=== PATIENT | male | born 1975 | race Caucasian/White ===

== ENCOUNTER 2022-12-28 08:12 | Outpatient (OUT) | payer BC, SELFPAY ==
--- NOTE | 2022-12-28 08:46 | XR_ITS ---
The [address] [address] Patient Name: ANUPAMA KELLOGG MRN: [id number] date: 1975 Sex: M Assigned Patient Location: LAB Current Patient Location: LAB Accession/Order Number: [id number] Exam Date: 12/28/2022 08:43 Report Date: 12/28/2022 09:03 At the request of: PAVEL SCHWAB Procedure: XR abdomen 1V EXAMINATION: XR abdomen 1V HISTORY: Kidney stone follow-up COMPARISON: XR KUB 09/23/2021 FINDINGS: KIDNEY/URETER - RIGHT: No visible renal or ureteral calcifications. KIDNEY/URETER - LEFT: No visible renal or ureteral calcifications. PELVIS: Stable small calcification within lower right pelvis compatible with phleboliths. BOWEL: No abnormal dilation or deviation. BONES: No acute abnormality. OTHER: Multiple large gallstones. XR/XR abdomen 1V IMPRESSION: 1. No appreciable urinary tract calculi. 2. Chronic cholelithiasis. Electronically authenticated by: JUNE BARRAZA Date: 12/28/2022 09:03
[2022-12-28 09:53] LABS: Anion Gap 11.8; BUN Creatinine Ratio 6.6; Carbon Dioxide 28.1 mmol/L (21.0-32.0); Chloride 105 mmol/L (98-107); Estimated GFR (African America >60 (>=60); Estimated GFR (Non-African Ame >60 (>=60); Glucose 118 mg/dL (74-106); Potassium 3.9 mmol/L (3.5-5.1); Sodium 141 mmol/L (136-145)
== END 2022-12-28 08:13 | disposition home or self-care (01) ==
LOC: LAB 08:17
PROVIDERS: Visit Provider Urology
DX: N20.0 Calculus of kidney (principal); K80.20 Calculus of gallbladder without cholecystitis without obstruction
CPT/HCPCS: 36415; 74018; 80048

== ENCOUNTER 2023-12-27 14:20 | Outpatient (OUT) | payer BC, SELFPAY ==
--- NOTE | 2023-12-27 14:27 | XR_ITS ---
[address] [address] Patient Name: ANUPAMA KELLOGG MRN: [id number] date: 1975 Sex: M Assigned Patient Location: [facility] Current Patient Location: Accession/Order Number: [id number] Exam Date: 12/27/2023 14:30 Report Date: 12/29/2023 07:44 At the request of: PAVEL SCHWAB Procedure: XR abdomen 1V EXAMINATION: XR abdomen 1V HISTORY: Kidney Stones N20.0 COMPARISON: 12/28/2022 FINDINGS: KIDNEY/URETER - RIGHT: No visible renal or ureteral calcifications. KIDNEY/URETER - LEFT: No visible renal or ureteral calcifications. PELVIS: No visible ureteral calcifications. Any visible calcifications favor phleboliths. BOWEL: No abnormal dilation or deviation. BONES: No acute abnormality. OTHER: Negative. No abnormal gaseous collections. XR/XR abdomen 1V IMPRESSION: No definite urinary tract calculi Electronically authenticated by: SUSIE ST Date: 12/29/2023 07:44
== END 2023-12-27 14:21 | disposition home or self-care (01) ==
LOC: LAB 14:22 → RAD 14:24
PROVIDERS: Visit Provider Urology
DX: N20.0 Calculus of kidney (principal)
CPT/HCPCS: 74018

== ENCOUNTER 2024-12-28 09:42 | Outpatient (OUT) | payer BC, SELFPAY ==
--- OUTSIDE RECORDS SUMMARY | 2024-12-28 09:54 | XMS_ITS | CCD ---
Author Organization [facility] Care Team Providers Care Miller First Name Role Phone NONE, XXXX Primary Care Physician Unavailab le REQUEST, DR CHRISTINE LISTED Admitting Unavaila ble REQUEST, DR KING LISTED Attending Unavaila ble MISC, DR COTTO Primary Care Unavailable REQUEST, DR KING LISTED Consulting Unavaila ble SCHWAB ., DR ZHAO Admitting Unavailable SCHWAB ., DR ZHAO Attending Unavailable MISC, DR COTTO Primary Care Unavailable SCHWAB ., DR ZHAO Consulting Unavailable ZIEBER, DR JUNE Sosa Consulting Unavailable SCHWAB ., DR ZHAO Admitting Unavailable SCHWAB ., DR ZHAO Attending Unavailable MISC, DR COTTO Primary Care Unavailable SCHWAB ., DR ZHAO Consulting Unavailable SCHWAB, Nitish Sosa Attending Unavailable SCHWAB, Nitish Sosa Admitting Unavailable SCHWAB, Nitish Sosa Attending Unavailable SCHWAB, Nitish Sosa Attending Unavailable SCHWAB, Nitish Sosa Attending Unavailable SCHWAB, Nitish Sosa Admitting Unavailable Medications Current Medications Medication Drug Class(es) Dates Sig (Normalized) Sig (Original) allopurinol 300 mg oral tablet (3 sources) Xanthine Oxidase Inhibitor Start: 12-31-2023 take 1 tablet by mouth once daily allopurinol 300 mg Tab 300 mg = 1 tab(s), Oral, Daily, # 90 tab(s), Refills(s) 3, [facility], 184, cm, 12/31/23 9:10:00 EDT, Height/Length Dosing, 103.2, kg, 12/31/23 9:10:00 EDT, Weight Dosing Start Date: 12/31/23 Status: Ordered Start: 06-28-2020 take 1 tablet by kanchan th once daily allopurinol 300 mg Tab 300 mg = 1 tab(s), Oral, Daily, # 90 tab(s), Refills(s) 3, Pharmacy: [facility], 184, cm, 06/28/20 8:38:00 EST, Height/Length Dosing, 104, kg, 06/28/20 8:38:00 EST, Weight Dosing Start Date: 06/28/20 Status: Ordered potassium citrate 10 meq extended release oral tablet (3 sources) Start: 12-31-2023 take 2 tablets by mouth twice daily Urocit-K 10 mEq Tab-ER 20 mEq, 2 tab(s), Oral, BID, 360 tab(s), Refill(s) 3, [facility], 184, cm, 12/31/23 9:10:00 EDT, Height/Length Dosing, 103.2, kg, 12/31/23 9:10:00 EDT, Weight Dosing Start Date: 12/31/23 Status: Ordered Start: 06-28-2020 take 2 tablets by mo uth twice daily Urocit-K 10 mEq Tab-ER 20 mEq, 2 tab(s), Oral, BID, 360 tab(s), Refill(s) 3, [facility], 184, cm, 06/28/20 8:38:00 EST, Height/Length Dosing, 104, kg, 06/28/20 8:38:00 EST, Weight Dosing Start Date: 06/28/20 Status: Ordered Problems Problem Classification Problem Date Documented Date Episodic/Chronic Biliary tract disease (5 sources) Cholelithiasis without obstruction; Translations: [Calculus of gallbladder without cholecystitis without obstruction] Onset: 09-26-2021 Episodic Calculus of urinary tract (13 sources) Kidney stone; Translations: [Calculus of kidney] Onset: 09-23-2021 Episodic Other nutritional; endocrine; and metabolic disorders (3 sources) Body mass index 30+ - obesity 07-03-2020 Chronic Other screening for suspected conditions (not mental disorders or infectious disease) (1 source) Encounter for screening for malignant neoplasm of prostate; Translations: [Screening for malignant neoplasm done] Onset: 12-31-2023 Episodic Substance-related disorders (3 sources) Nicotine dependence 07-03-2020 Chronic Unclassified (2 sources) Patient encounter status 12-25-2022 Results Test Name Value Interpretation Reference Range Facility CHEMISTRYOrdered By: SYSTEM SYSTEM on 12-31-2023 Prostate specific Ag [Mass/Vol] 0.5 ng/mL Normal 0.1 - 3.5 ng/mL [facility] Comment on above: Interpretive Data: T he concentration of PSA determined by different manufacturers can vary due to differences in assay methods and reagent specificity. Values obtained from different assay methods cannot be used interchangeably. The methodology used for this result was chemiluminescence using [employer] Access Hybritech PSA reagent. PSA Totalon 12-31-2023 Prostate specific Ag [Mass/Vol] 0.5 ng/mL Normal 0.1-3.5 [facility] Comment on above: Result Comment: The concentration of PSA determined by different manufacturers can vary due to differences in assay methods and reagent specificity. Values obtained from different assay methods cannot be used interchangeably. The methodology used for this result was chemiluminescence using [employer] Access Hybritech PSA reagent. Performed By: #### 1 [id number] #### [facility] [address] [place] [address] Urology Office/Clinic Noteon 12-31-2023 Urology Office/Clinic Note Urology Office/Clinic Note Chief Complaint kidney stone HPI Staff 1 yr w/ KUB. Dx: kidney stone, screening PSA. *Allopurinol 300mg qd and Urocit-K 10mEq 2 tabs bid KUB done 12/27/23 at [facility] was neg for stones. Pt states no recent PSA done Dysuria: no Incomplete bladder emptying: no Hematuria: no Frequency: no Urgency: no Nocturia: no Stream: no straining or intermittency Leaking: no Post void dripping: no Wearing pads/ Depends: no Urge incontinence: no Stress incontinence: no Incontinence without Sensory Awareness: no Abdominal pain: no Flank pain: no Sexual complaints: no History of Present Illness Tests reviewed: reviewed UA and KUB. I have reviewed the previous health record information and history for this patient from Dr. Schwab. I have reviewed and verified the staff HPI to be accurate for this encounter. There have been no associated fever, chills, flank pain, or blood in the urine. Denies any urinary infections since last encounter. Review of Systems PHQ Score Initial Depression Screen Score: 0 SCORE ROS - Provider Constitutional: denies weight loss, denies hot flashes. Eyes: denies eye problems. Gastrointestinal: denies nausea, denies vomiting. Cardiovascular: denies chest pain or angina. Integumentary: no dryness Musculoskeletal: denies musculoskeletal symptoms. ENMT: denies otolaryngeal symptoms. Respiratory: no shortness of breath. Heme/Lymph: denies easy bleeding tendency, denies easy bruising tendency. Psychiatric: no confusion, no anxiety. Genitourinary: See HPI. Physical Exam Vitals & Measurements T: 37 ?C(Temporal Artery) HR: 80(Peripheral) RR: 16 BP: 130/87 HT: 72 in HT: 184 cm WT: 103.2 kg WT: 227.04 lb BMI: 30.48 General Appearance: alert, no distress, well nourished, well developed male. Assessment/Plan 48 yo male here for annual follow up with KUB. 1. Kidney stone (N20.0: Calculus of kidney) S/p L ESWL 03/19/16, 01/26/13, and 03/24/12. Stone analysis 06/03/17 - 80% Di CaOx, 5% [place] CaOx, 15% CaP. 24hr urine 06/11/17 - high uric acid and total volume of 2000 KUB 12/28/22 [facility] - negative for renal/ureteral stones. KUB 12/27/23 [facility] - no stones id'd. Taking Allopurinol 300mg qd and Urocit-K 10mEq 2 tabs BID. [1] Refills provided. Pt states he has not had a stone in 7 years since starting meds. Pt sates he has also changed his diet. UA today shows trace-intact blood. -Cont meds wo changes -Follow up in 1 year w/ KUB 2. Screening PSA (prostate specific antigen) (Z12.5: Encounter for screening for malignant neoplasm of prostate) PSA: 11/21/21 - 0.90 ~No recent PSA on file. No family hx of prostate CA. -PSA drawn IO today Follow-up With When Contact Information JOSSELIN LOPEZ, Nitish Sosa, URL [address] [place] [address]- Additional Instructions: 1 year w/ KUB Patient Education Dietary Guidelines to Help Prevent Kidney Stones IAnamaria, personally scribed for Dr. Schwab on 12/31/2023 09:34:40. . Documentation recorded by the olyaAnamaria salmeron, accurately reflects the services(s) I performed and decisions made by me. Authenticated by Dr. Schwab on 12/31/2023 09:37:14. Problem List/Past Medical History Ongoing BMI 30.0-30.9,adult Cholelithiasis Kidney stone Screening PSA (prostate specific antigen) Smoker Historical No qualifying data Procedure/Surgical History ESWL - Extracorporeal shockwave lithotripsy for renal calculus (03/19/2016), ESWL - Extracorporeal shockwave lithotripsy for renal calculus (01/26/2013), ESWL - Extracorporeal shockwave lithotripsy for renal calculus (03/24/2012), Cystoscopic insertion of ureteric stent (03/03/2012), Appendectomy, Tonsillectomy. Medications allopurinol 300 mg Tab, 300 mg= 1 tab(s), Oral, Daily, 3 refills Urocit-K 10 mEq Tab-ER, 20 mEq= 2 tab(s), Oral, BID, 3 refills Allergies No Known Allergies Social History Alcohol 3-5 times per week, 06/14/2019 Tobacco 10 or more cigarettes (1/2 pack or more)/day in last 30 days Tobacco Use:. Cigarettes, Ready to change: No. Household tobacco concerns: No. Yes, 12/31/2023 5-9 cigarettes (between 1/4 to 1/2 pack)/day in last 30 days Tobacco Use:. Yes, 06/28/2020 Family History Congenital heart disease: Mother. Immunizations Vaccine Date Status Comments SARS-CoV-2 (COVID-19) mRNA BNT-162b2 vax 05/19/2021 Recorded SARS-CoV-2 (COVID-19) mRNA BNT-162b2 vax 09/16/2020 Recorded SARS-CoV-2 (COVID-19) mRNA BNT-162b2 vax 08/26/2020 Recorded influenza virus vaccine, inactivated - Not Given Patient Refuses SARS-CoV-2 (COVID-19) mRNA BNT-162b2 vax 2020 Recorded Lab Results Ambulatory Point of Care Results Bilirubin Urine Dipstick: Negative (12/31/23 09:05:00) Blood Urine Dipstick: Trace-intact (12/31/23 09:05:00) Glucose Urine Dipstick: Negative (12/31/23 09:05:00) Ketones Urine Dipstick: Negative (12/31/23 09:05:00) (more content not included)... Normal [facility] Comment on above: Result Comment: Elec tronically Signed By: Nitish SCHWAB MD\.br\Date and Time Signed: 12/31/23 09:37 EDT\.br\Electronically Co-Signed By: Anamaria Trevizo.br\Date and Time Co-Signed: 12/31/23 09:35 EDT LUIS FERNANDO COVID-19 ANTIGENon 07-23 EUA Statement SEE BELOW Normal [facility] Comment on above: Result Comment: This test has not been FDA cleared or approved, but has been authorized by the FDA under an Emergency Use Authorization (EUA) for use by authorized laboratories certified under CLIA that meet the requirements to perform moderate or high complexity testing. This test has been authorized only for the detection of proteins from SARS-CoV-2, not for any other viruses or pathogens. The emergency use of this test is authorized for the duration of the declaration that circumstances exist justifying the authorization of emergency use of in vitro diagnostic tests for detection and/or diagnosis of Covid-19 under section 564(b)(1) of the Act, 21 U.S.C. 360bbb-3(b)(1), unless the declaration is terminated or authorization is revoked sooner. Performed By: #### D ATCVAG #### [facility] [address] [address] [address] Corbin Slaughter SARS-CoV-2 (COVID-19) RNA RUSTAM+probe Ql (Unsp spec) Positive Abnormal NEGATIVE [facility] Comment on above: Performed By: #### D ATCVAG #### [facility] [address] [address] [address] Corbin Slaughter XR KUB 1 VIEWon 09-23-2021 XR KUB 1 VIEW EXAMINATION: XR KUB 1 VIEW HISTORY: H/O: urinary stone COMPARISON: XR KUB 06/28/2020 FINDINGS: KIDNEY/URETER - RIGHT: No visible renal or ureteral calcifications. KIDNEY/URETER - LEFT: No visible renal or ureteral calcifications. PELVIS: No visible ureteral calcifications. Any visible calcifications favor phleboliths. BOWEL: No abnormal dilation or deviation. BONES: No acute abnormality. OTHER: Several large stones within the gallbladder at 2.6 cm diameter. IMPRESSION: 1. No visible urinary tract calculi. 2. Persistent cholelithiasis. Electronically authenticated by: JUNE BARRAZA Date: 2021-09-23 15:52 Normal [facility] Vital Signs Date Time Vital Sign Value Performing Clinician Jeffrey pal 12-31-2023 09:03-0400 Blood Pressure Location Nitish SCHWAB [facility] 12-31-2023 09:03-0400 Body temperature 98.6 [degF] Nitish SCHWAB [facility] 12-31-2023 09:03-0400 Diastolic blood pressure 87 mm[Hg] Nitish SCHWAB [facility] 12-31-2023 09:03-0400 Heart rate 80 /min Nitish SCHWAB [facility] 12-31-2023 09:03-0400 Respiratory rate 16 /min Nitish SCHWAB [facility] 12-31-2023 09:03-0400 Systolic blood pressure 130 mm[Hg] Nitish SCHWAB [facility] 09-26-2021 11:15-0400 Blood Pressure Location Nitish SCHWAB [facility] 09-26-2021 11:15-0400 Diastolic blood pressure 86 mm[Hg] Nitish SCHWAB [facility] 09-26-2021 11:15-0400 Heart rate 84 /min Nitish SCHWAB [facility] 09-26-2021 11:15-0400 Respiratory rate 16 /min Nitish SCHWAB [facility] 09-26-2021 11:15-0400 Systolic blood pressure 137 mm[Hg] Nitish SCHWAB [facility] Encounters Encounter Date Encounter Type Care Provider Facility Start: 12-29-2024 [facility] Start: 12-31-2023 End: 12-31-2023 ambulatory Nitish SCHWAB Facility:[facility] Start: 12-31-2023 End: 12-31-2023 Lab Drop off Nitish SCHWAB [facility] Start: 12-31-2023 End: 12-31-2023 ambulatory Nitish SCHWAB Facility:[facility] Start: 12-31-2023 End: 12-31-2023 Patient encounter procedure Nitish SCHWAB [facility] Start: 07-23-2022 End: 07-23-[address] KING LISTED REQUEST Facility:[facility] Start: 11-18-2021 End: 11-19-[address] NITISH SCHWAB . Facility:[facility] Start: 09-26-2021 End: 09-26-2021 Patient encounter procedure Niitsh SCHWAB [facility] Start: 09-23-2021 End: 09-24-[address] NITISH SCHWAB . Facility:[facility] Procedures Date Procedure Procedure Detail Performing Clinician Start: 11-18-[address] KING L ISTED REQUEST Comment on above: Performed By: #### P SAD #### [facility] [address] [address] [address] Corbin Slaughter Start: 03-19-2016 Extracorporeal shock wave lithotripsy of calculus of kidney Nitish SCHWAB Start: 01-26-2013 Extracorporeal shock wave lithotripsy of calculus of kidney Nitish SCHWAB Start: 03-24-2012 Extracorporeal shock wave lithotripsy of calculus of kidney Nitish SCHWAB Start: 03-03-2012 Cystoscopic insertio n of ureteric stent Nitish SCHWAB Appendectomy Nitish SCHWAB Tonsillectomy Nitish SCHWAB Immunizations Immunization Date Immunization Notes Care Provider Fa cili 05-19-2021 SARS-CoV-2 (COVID-19 ) mRNA BNT-162b2 vax Nitish SCHWAB [facility] 09-16-2020 SARS-CoV-2 (COVID-19 ) mRNA BNT-162b2 vax Nitish SCHWAB [facility] 08-26-2020 SARS-CoV-2 (COVID-19 ) mRNA BNT-162b2 vax Nitish SCHWAB [facility] 05-17-2020 SARS-CoV-2 (COVID-19 ) mRNA BNT-162b2 vax Nitish SCHWAB [facility] NEGATED: Highlighted row has not occurred!07-03-2020 influenza virus vaccine, unspecified formulation Nitish SCHWAB [facility] Payers Date Payer Category Payer Unknown [id number] [id number] [id number] 1975 Unknown [id number] 2.16.84 [id number] 1975 Unknown [id number] [id number] [id number] 1976 Unknown [id number] 2.16.8 [id number] 1976 Unknown [id number] 2.16.8 [id number] 1959 Self-pay [id number] 1958 Unknown [id number] Unknown [id number] [id number] [id number] Social History Date Type Detail Facility Start: 07-03-2020 Tobacco smoking status Light t obacco smoker (finding) [facility] Sex Assigned At Male [facility] Start: 12-31-2023 Tobacco smoking status Heavy t obacco smoker (finding) [facility] Functional Status Date Assessment Result Facility 12-31-2023 Functional Status N/A [facility] Hospital Discharge instructions 12-31-2023 Note Date & Type Note Facility 12-31-2023 Hospital Discharg e instructions Patient Education 12/31/2023 09:31:12 Dietary Guidelines to Help Prevent Kidney Stones Dietary Guidelines to Help Prevent Kidney Stones Kidney stones are deposits of minerals and salts that form inside your kidneys. Your risk of developing kidney stones may be greater depending on your diet, your lifestyle, the medicines you take, and whether you have certain medical conditions. Most people can lower their risks of developing kidney stones by following these dietary guidelines. Your dietitian may give you more specific instructions depending on your overall health and the type of kidney stones you tend to develop. What are tips for following this plan? Reading food labels Choose foods with no salt added or low-salt labels. Limit your salt (sodium) intake to less than 1,500 mg a day. Choose foods with calcium for each meal and snack. Try to eat about 300 mg of calcium at each meal. Foods that contain 200 500 mg of calcium a serving include: ?8 oz (237 mL) of milk, ialvepk-rlqlkslgmifn-fnjbs milk, and calcium-fortifiedfruit juice. Calcium-fortified means that calcium has been added to these drinks. ?8 oz (237 mL) of kefir, yogurt, and soy yogurt. ?4 oz (114 g) of tofu. ?1 oz (28 g) of cheese. ?1 cup (150 g) of dried figs. ?1 cup (91 g) of cooked broccoli. ?One 3 oz (85 g) can of sardines or mackerel. Most people need 1,000 1,500 mg of calcium a day. Talk to your dietitian about how much calcium is recommended for you. Shopping Buy plenty of fresh fruits and vegetables. Most people do not need to avoid fruits and vegetables, even if these foods contain nutrients that may contribute to kidney stones. When shopping for convenience foods, choose: ?Whole pieces of fruit. ?Pre-made salads with dressing on the side. ?Low-fat fruit and yogurt smoothies. Avoid buying frozen meals or prepared deli foods. These can be high in sodium. Look for foods with live cultures, such as yogurt and kefir. Choose high-fiber grains, such as whole-wheat breads, oat bran, and wheat cereals. Cooking Do not add salt to food when cooking. Place a salt shaker on the table and allow each person to add their own salt to taste. Use vegetable protein, such as beans, textured vegetable protein (TVP), or tofu, instead of meat in pasta, casseroles, and soups. Meal planning Eat less salt, if told by your dietitian. To do this: ?Avoid eating processed or pre-made food. ?Avoid eating fast food. Eat less animal protein, including cheese, meat, poultry, or fish, if told by your dietitian. To do this: ?Limit the number of times you have meat, poultry, fish, or cheese each week. Eat a diet free of meat at least 2 days a week. ?Eat only one serving each day of meat, poultry, fish, or seafood. ?When you prepare animal proteins, cut pieces into small portion sizes. For most meat and fish, one serving is about the size of the palm of your hand. Eat at least five servings of fresh fruits and vegetables each day. To do this: ?Keep fruits and vegetables on hand for snacks. ?Eat one piece of fruit or a handful of berries with breakfast. ?Have a salad and fruit at lunch. ?Have two kinds of vegetables at dinner. You may be told to limit foods that are high in a substance called oxalate. These include: ?Spinach (cooked), rhubarb, beets, sweet potatoes, and Hungarian chard. ?Peanuts. ?Potato chips, tajik fries, and baked potatoes with skin on. ?Nuts and nut products. ?Chocolate. If you regularly take a diuretic medicine, make sure to eat at least 1 or 2 servings of fruits or vegetables that are high in potassium each day. These include: ?Avocado. ?Banana. ?Barton, prune, carrot, or tomato juice. ?Baked potato. ?Cabbage. ?Beans and split peas. Lifestyle Drink enough fluid to keep your urine pale yellow. This is the most important thing you can do. Spread your fluid intake throughout the day. If you drink alcohol: ?Limit how much you have to: ?0 1 drink a day for women who are not . ?0 2 drinks a day for men. ?Know how much alcohol is in your drink. In the [place] one drink equals one 12 oz bottle of beer (355 mL), one 5 oz glass of wine (148 mL), or one 1 oz glass of hard liquor (44 mL). Lose weight if told by your health care provider. Work with your dietitian to find an eating plan and weight loss strategies that work best for you. General information Talk to your health care provider and dietitian about taking daily supplements. Depending on your health and the cause of your kidney stones, you may be told: ?Do not take high-dose supplements of vitamin C (1,000 mg a day or more). ?To take a calcium supplement. ?To take a daily probiotic supplement. ?To take other supplements such as magnesium, fish oil, or vitamin B6. Take ernz-fvp-wffylun and prescription medicines only as told by your health care provider. These include supplements. What foods should I limit? Limit your intake of the following foods, or eat them as told by your dietitian. Vegetables Spinach. Rhubarb. Beets. Canned vegetables. Pickles. Olives. Baked potatoes with skin. Grains Wheat bran. Baked goods. Salted crackers. Cereals high in sugar. Meats and other proteins Nuts. Nut butters. Large portions of meat, poultry, or fish. Salted, precooked, or cured meats, such as sausages, meat loaves, and hot dogs. Dairy Cheeses. Beverages Regular soft drinks. Regular vegetable juice. Seasonings and condiments Seasoning blends with salt. Salad dressings. Soy sauce. Ketchup. Barbecue sauce. Other foods Canned soups. Canned pasta sauce. Casseroles. Pizza. Lasagna. Frozen meals. Potato chips. Maltese fries. The items listed above may not be a complete list of foods and beverages you should limit. Contact a dietitian for more information. What foods should I avoid? Talk to your dietitian about specific foods you should avoid based on the type of kidney stones you have and your overall health. Fruits Grapefruit. The item listed above may not be a complete list of foods and beverages you should avoid. Contact a dietitian for more information. Summary Kidney stones are deposits of minerals and salts that form inside your kidneys. You can lower your risk of kidney stones by making changes to your diet. The most important thing you can do is drink enough fluid. Drink enough fluid to keep your urine pale yellow. Talk to your dietitian about how much calcium you should have each day, and eat less salt and animal protein as told by your dietitian. This information is not intended to replace advice given to you by your health care provider. Make sure you discuss any questions you have with your health care provider. Document Revised: 08/13/2022 Document Reviewed: 08/13/2022 [employer] Patient Education 2022 [employer]. Follow Up Care 12/28/2022 11:43:33 With:JOSSELIN LOPEZ, Nitish Sosa, URL Address: [address] [place] [phone]- When: Unknown [facility] Clinical Note 12-31-2023 Note Date & Type Note Facility 12-31-2023 Note Patient Education Nephrology Dietary Guidelines to Help Prevent Kidney Stones Kidney stones are deposits of minerals and salts that form inside your kidneys. Your risk of developing kidney stones may be greater depending on your diet, your lifestyle, the medicines you take, and whether you have certain medical conditions. Most people can lower their risks of developing kidney stones by following these dietary guidelines. Your dietitian may give you more specific instructions depending on your overall health and the type of kidney stones you tend to develop. What are tips for following this plan? Reading food labels ? Choose foods with no salt added or low-salt labels. Limit your salt (sodium) intake to less than 1,500 mg a day. ? Choose foods with calcium for each meal and snack. Try to eat about 300 mg of calcium at each meal. Foods that contain 200?500 mg of calcium a serving include: ? 8 oz (237 mL) of milk, lexzpqj-ogyqvgnyzobi-fjbrq milk, and calcium-fortifiedfruit juice. Calcium-fortified means that calcium has been added to these drinks. ? 8 oz (237 mL) of kefir, yogurt, and soy yogurt. ? 4 oz (114 g) of tofu. ? 1 oz (28 g) of cheese. ? 1 cup (150 g) of dried figs. ? 1 cup (91 g) of cooked broccoli. ? One 3 oz (85 g) can of sardines or mackerel. Most people need 1,000?1,500 mg of calcium a day. Talk to your dietitian about how much calcium is recommended for you. Shopping ? Buy plenty of fresh fruits and vegetables. Most people do not need to avoid fruits and vegetables, even if these foods contain nutrients that may contribute to kidney stones. ? When shopping for convenience foods, choose: ? Whole pieces of fruit. ? Pre-made salads with dressing on the side. ? Low-fat fruit and yogurt smoothies. ? Avoid buying frozen meals or prepared deli foods. These can be high in sodium. ? Look for foods with live cultures, such as yogurt and kefir. ? Choose high-fiber grains, such as whole-wheat breads, oat bran, and wheat cereals. Cooking ? Do not add salt to food when cooking. Place a salt shaker on the table and allow each person to add their own salt to taste. ? Use vegetable protein, such as beans, textured vegetable protein (TVP), or tofu, instead of meat in pasta, casseroles, and soups. Meal planning ? Eat less salt, if told by your dietitian. To do this: ? Avoid eating processed or pre-made food. ? Avoid eating fast food. ? Eat less animal protein, including cheese, meat, poultry, or fish, if told by your dietitian. To do this: ? Limit the number of times you have meat, poultry, fish, or cheese each week. Eat a diet free of meat at least 2 days a week. ? Eat only one serving each day of meat, poultry, fish, or seafood. ? When you prepare animal proteins, cut pieces into small portion sizes. For most meat and fish, one serving is about the size of the palm of your hand. ? Eat at least five servings of fresh fruits and vegetables each day. To do this: ? Keep fruits and vegetables on hand for snacks. ? Eat one piece of fruit or a handful of berries with breakfast. ? Have a salad and fruit at lunch. ? Have two kinds of vegetables at dinner. ? You may be told to limit foods that are high in a substance called oxalate. These include: ? Spinach (cooked), rhubarb, beets, sweet potatoes, and Hungarian chard. ? Peanuts. ? Potato chips, tajik fries, and baked potatoes with skin on. ? Nuts and nut products. ? Chocolate. ? If you regularly take a diuretic medicine, make sure to eat at least 1 or 2 servings of fruits or vegetables that are high in potassium each day. These include: ? Avocado. ? Banana. ? Barton, prune, carrot, or tomato juice. ? Baked potato. ? Cabbage. ? Beans and split peas. Lifestyle ? Drink enough fluid to keep your urine pale yellow. This is the most important thing you can do. Spread your fluid intake throughout the day. ? If you drink alcohol: ? Limit how much you have to: ? 0?1 drink a day for women who are not . ? 0?2 drinks a day for men. ? Know how much alcohol is in your drink. In the [place] one drink equals one 12 oz bottle of beer (355 mL), one 5 oz glass of wine (148 mL), or one 1? oz glass of hard liquor (44 mL). ? Lose weight if told by your health care provider. Work with your dietitian to find an eating plan and weight loss strategies that work best for you. General information ? Talk to your health care provider and dietitian about taking daily supplements. Depending on your health and the cause of your kidney stones, you may be told: ? Do not take high-dose supplements of vitamin C (1,000 mg a day or more). ? To take a calcium supplement. ? To take a daily probiotic supplement. ? To take other supplements such as magnesium, fish oil, or vitamin B6. ? Take gnuz-gki-qzhzbie and prescription medicines only as told by your health care provider. These include suppleme (more content not included)... [facility] Hospital Discharge instructions 09-26-2021 Note Date & Type Note Facility 09-26-2021 Hospital Discharg e instructions Patient Education 09/26/2021 12:06:36 Cholelithiasis Cholelithiasis Cholelithiasis is a form of gallbladder disease in which gallstones form in the gallbladder. The gallbladder is an organ that stores bile. Bile is made in the liver, and it helps to digest fats. Gallstones begin as small crystals and slowly grow into stones. They may cause no symptoms until the gallbladder tightens (contracts) and a gallstone is blocking the duct (gallbladder attack), which can cause pain. Cholelithiasis is also referred to as gallstones. There are two main types of gallstones: Cholesterol stones. These are made of hardened cholesterol and are usually yellow-green in color. They are the most common type of gallstone. Cholesterol is a white, waxy, fat-like substance that is made in the liver. Pigment stones. These are dark in color and are made of a red-yellow substance that forms when hemoglobin from red blood cells breaks down (bilirubin). What are the causes? This condition may be caused by an imbalance in the substances that bile is made of. This can happen if the bile: Has too much bilirubin. Has too much cholesterol. Does not have enough bile salts. These salts help the body absorb and digest fats. In some cases, this condition can also be caused by the gallbladder not emptying completely or often enough. What increases the risk? The following factors may make you more likely to develop this condition: Being female. Having multiple pregnancies. Health care providers sometimes advise removing diseased gallbladders before future pregnancies. Eating a diet that is heavy in fried foods, fat, and refined carbohydrates, like white bread and white rice. Being obese. Being older than age 40. Prolonged use of medicines that contain female hormones (estrogen). Having diabetes mellitus. Rapidly losing weight. Having a family history of gallstones. Being of or [place] descent. Having an intestinal disease such as Crohn disease. Having metabolic syndrome. Having cirrhosis. Having severe types of anemia such as sickle cell anemia. What are the signs or symptoms? In most cases, there are no symptoms. These are known as silent gallstones. If a gallstone blocks the bile ducts, it can cause a gallbladder attack. The main symptom of a gallbladder attack is sudden pain in the upper right abdomen. The pain usually comes at night or after eating a large meal. The pain can last for one or several hours and can spread to the right shoulder or chest. If the bile duct is blocked for more than a few hours, it can cause infection or inflammation of the gallbladder, liver, or pancreas, which may cause: Nausea. Vomiting. Abdominal pain that lasts for 5 hours or more. Fever or chills. Yellowing of the skin or the whites of the eyes (jaundice). Dark urine. Light-colored stools. How is this diagnosed? This condition may be diagnosed based on: A physical exam. Your medical history. An ultrasound of your gallbladder. CT scan. MRI. Blood tests to check for signs of infection or inflammation. A scan of your gallbladder and bile ducts (biliary system) using nonharmful radioactive material and special cameras that can see the radioactive material (cholescintigram). This test checks to see how your gallbladder contracts and whether bile ducts are blocked. Inserting a small tube with a camera on the end (endoscope) through your mouth to inspect bile ducts and check for blockages (endoscopic retrograde cholangiopancreatogram). How is this treated? Treatment for gallstones depends on the severity of the condition. Silent gallstones do not need treatment. If the gallstones cause a gallbladder attack or other symptoms, treatment may be required. Options for treatment include: Surgery to remove the gallbladder (cholecystectomy). This is the most common treatment. Medicines to dissolve gallstones. These are most effective at treating small gallstones. You may need to take medicines for up to 6 12 months. Shock wave treatment (extracorporeal biliary lithotripsy). In this treatment, an ultrasound machine sends shock waves to the gallbladder to break gallstones into smaller pieces. These pieces can then be passed into the intestines or be dissolved by medicine. This is rarely used. Removing gallstones through endoscopic retrograde cholangiopancreatogram. A small basket can be attached to the endoscope and used to capture and remove gallstones. Follow these instructions at home: Take hfkn-qes-wclnosm and prescription medicines only as told by your health care provider. Maintain a healthy weight and follow a healthy diet. This includes: ?Reducing fatty foods, such as fried food. ?Reducing refined carbohydrates, like white bread and white rice. ?Increasing fiber. Aim for foods like almonds, fruit, and beans. Keep all follow-up visits as told by your health care provider. This is important. Contact a health care provider if: You think you have had a gallbladder attack. You have been diagnosed with silent gallstones and you develop abdominal pain or indigestion. Get help right away if: You have pain from a gallbladder attack that lasts for more than 2 hours. You have abdominal pain that lasts for more than 5 hours. You have a fever or chills. You have persistent nausea and vomiting. You develop jaundice. You have dark urine or light-colored stools. Summary Cholelithiasis (also called gallstones) is a form of gallbladder disease in which gallstones form in the gallbladder. This condition is caused by an imbalance in the substances that make up bile. This can happen if the bile has too much cholesterol, too much bilirubin, or not enough bile salts. You are more likely to develop this condition if you are female, , using medicines with estrogen, obese, older than age 40, or have a family history of gallstones. You may also develop gallstones if you have diabetes, an intestinal disease, cirrhosis, or metabolic syndrome. Treatment for gallstones depends on the severity of the condition. Silent gallstones do not need treatment. If gallstones cause a gallbladder attack or other symptoms, treatment may be needed. The most common treatment is surgery to remove the gallbladder. This information is not intended to replace advice given to you by your health care provider. Make sure you discuss any questions you have with your health care provider. Document Released: 04/29/2006 Document Revised: 04/15/2018 Document Reviewed: 01/17/2017 [employer] Patient Education 2020 [place]. Follow Up Care 06/28/2020 09:09:36 With:Nitish SCHWAB MD, URL Address: [facility] [address], [place] [address]- When: Unknown [facility] Evaluation + Plan note Note Date & Type Note Facility Evaluation + Plan note Future Appointments Appointment Date:09/28/2022 10:30:00 AM Scheduled Provider:Nitish SCHWAB MD Location:[facility] Appointment Type:URO Office Visit Diagnostic Tests PendingPSA Total 09/26/21 [facility] Evaluation + Plan note Note Date & Type Note Facility Evaluation + Plan note Future Appointments Appointment Date:12/22/2024 08:30:00 AM Scheduled Provider:Nitish SCHWAB MD Location:[facility] Appointment Type:URO Office Visit [facility] Hospital course Narrative Note Date & Type Note Facility Hospital course Narrative No data available for this section [facility] Hospital Discharge instructions Note Date & Type Note Facility Hospital Discharge instructions No data available for this section [facility] note Note Date & Type Note Facility Progress note No data available for this section [facility] Summary Purpose Family History No Family History Records Found No data available for this section No data available for this section No Family History Records FoundNo Family History Records Found Advance Directives No Advanced Directives Records FoundNo Advanced Directives Records FoundNo Advanced Directives Records Found Additional Source Comments (unrecognized sect ion and content) No Status Records FoundNo Status Records FoundNo Status Records Found INFORMATION SOURCE (unrecogn ized section and content) DATE CREATED AUTHOR 07/25/2022 [facility] DATE CREATED AUTHOR AUTHOR'S ORGANIZ ATION 01/06/2024 [facility] DATE CREATED AUTHOR AUTHOR'S ORGANIZ ATION 12/04/2024 [facility] FOR RECORDS PERTAINING TO PATIENTS WHO ARE OR HAVE BEEN ENROLLED IN A CHEMICAL DEPENDENCY/SUBSTANCEABUSE PROGRAM, SOME INFORMATION MAY BE OMITTED. This clinical summary was aggregated from multiple sources. Caution should be exercised in using it in the provision of clinical care. This summary normalizes information from multiple sources, and as a consequence, information in this document may materially change the coding, format and clinical context of patient data. In addition, data may be omitted in some cases. CLINICAL DECISIONS SHOULD BE BASED ON THE PRIMARY CLINICAL RECORDS. [facility] [employer] provides no warranty or guarantee of the accuracy or completeness of information in this document.
--- NOTE | 2024-12-28 10:05 | XR_ITS ---
[address] [address] Patient Name: ANUPAMA KELLOGG MRN: [id number] date: 1975 Sex: M Assigned Patient Location: LAB Current Patient Location: LAB Accession/Order Number: [id number] Exam Date: 12/28/2024 10:45 Report Date: 12/28/2024 10:49 At the request of: PAVEL SCHWAB MD Procedure: XR abdomen 1V KUB: CLINICAL INFORMATION: Kidney stone follow-up COMPARISON: KUB 12/27/2023 FINDINGS: No suspicious urinary tract calculus. No bowel obstruction or free air. XR/XR abdomen 1V IMPRESSION: NO SUSPICIOUS URINARY TRACT CALCULUS. Impression dictated by: Edilberto Pascual Jr., D.ORober 12/28/2024 10:49 AM Dictation Location: [place] [address] Electronically authenticated by: [id number] Y Date: 12/28/2024 10:49
== END 2024-12-28 09:43 | disposition home or self-care (01) ==
PROVIDERS: Visit Provider Urology
DX: N20.0 Calculus of kidney (principal); Z12.5 Encounter for screening for malignant neoplasm of prostate
CPT/HCPCS: 36415; 74018; 84153; G0103